=== PATIENT | female | born 1935 | race Caucasian/White ===

== ENCOUNTER 2018-03-09 20:59 | Inpatient (IN) | payer OTHER, MEDICARE ==
--- NOTE | 2018-03-09 21:33 | EDPHY ---
H & P Stated Complaint: head bleed Time Seen by Provider: 03/09/18 21:05 - Personal History Current Tetanus/Diphtheria Vaccine: Unsure Current Tetanus Diphtheria and Acellular Pertussis (TDAP): Unsure - Medical/Surgical History Hx Asthma: No Hx Chronic Respiratory Disease: No Hx Diabetes: No Hx Cardiac Disease: Yes Hx Renal Disease: No Hx Cirrhosis: No Hx Alcoholism: No Hx HIV/AIDS: No Hx Splenectomy or Spleen Trauma: No Other PMH: glaucoma, leiden factor V, HTN, High chol, anxiety - Social History Smoking Status: Never smoked Constitutional: Initial Vital Signs Temperature (C) 36.9 C 03/09/18 21:01 Heart Rate 88 03/09/18 21:01 Respiratory Rate 16 03/09/18 21:01 Blood Pressure 171/62 H 03/09/18 21:01 O2 Sat (%) 99 03/09/18 21:01 O2 Delivery Mode Room Air Allergies/Adverse Reactions: codeine Allergy (Verified 03/09/18 21:21) meperidine [From Demerol] Allergy (Verified 03/09/18 21:21) morphine Allergy (Verified 03/09/18 21:21) Home Medications: Medication Instructions Recorded ALPRAZolam [Alprazolam] 0.25 mg PO TID 03/09/18 Aspirin [Aspirin 81mg (*)] 81 mg PO DAILY 03/09/18 Simvastatin [Simvastatin] 20 mg PO HS 03/09/18 Warfarin Sodium 2.5 mg PO SUWE@16 03/09/18 Warfarin Sodium 5 mg PO MOTUTHFRSA@16 03/09/18 amLODIPine BESYLATE [Norvasc 2.5 2.5 mg PO DAILY 03/09/18 mg (*)] Medical Decision Making ED Course/Re-evaluation: CHIEF COMPLAINT: CVA HISTORY OF PRESENT ILLNESS: The patient is an 82 y/o female with Factor V Leiden deficiency and hypertension arriving via EMS from [facility] [place], [place] with known CVA for admission to the hospital here. CT today showed a lacunar infarct. She arrives on a Cardene drip for blood pressure management. Neurology is aware of patient and agrees with plan for admission here with continued blood pressure control. She denies any complaints currently and states, "I'm doing fine." She had no neurologic deficits prior to transfer here and currently denies headache, weakness, paresthesias, vision changes, speech difficulty, recent illness, or recent trauma. She told her family member earlier in the week she began feeling off and has not taken her medications for several days. Family member believes her dementia is worse currently. REVIEW OF SYSTEMS: A 10 point review of systems was performed and is negative with the exception of the elements mentioned in the history of present illness. PHYSICAL EXAM: HR, BP, O2 Sat, RR. Temp noted General Appearance: Alert, well hydrated, appropriate, and non-toxic appearing. Head: Atraumatic without scalp tenderness or obvious injury Eyes: Pupils equal, round, reactive to light and accommodation, EOMI, no trauma , no injection. Nose: Atraumatic, no rhinorrhea, clear. Throat: Mucus membranes moist. Neck: Supple Respiratory: No retractions, no distress, no wheezes, and no accessory muscle use. Lungs are clear to auscultation bilaterally. Cardiovascular: Regular rate and rhythm, no murmurs, rubs, or gallops. Good capillary refill all extremities. Gastrointestinal: Abdomen is soft, non-tender, non-distended, no masses, no rebound, no guarding, no peritoneal signs. Musculoskeletal: Normal active ROM of all extremities, atraumatic. Neurological: Alert, appropriate, and interactive. Nonfocal neuro. Skin: No rashes, good turgor, no nodules on palpation. PAST MEDICAL HISTORY: glaucoma, Factor V Leiden deficiency, hypertension, hypercholesterolemia, anxiety PAST SURGICAL HISTORY: Noncontributory SOCIAL HISTORY: Family member at bedside. Lives in [place]. Retired. DIFFERENTIAL DIAGNOSIS: The differential diagnosis for the patient's symptoms included but was not limited to peripheral causes, central causes including CVA , TIA, electrolyte abnormalities and dehydration, cardiogenic causes, atypical causes like migraine syndrome. MEDICAL DECISION MAKING: This is an 82 y/o female who presents with a known lacunar infarct on CT today while at [facility] [place], [place]. She denies any current complaints and has a nonfocal neuro exam. Discussed case with neurology prior to patient arrival and they recommend blood pressure control and admission. No further interventions necessary at this time. Patient and her family member are comfortable with plan for admission. Spoke with hospitalist service. Dr. Escobar accepts admission. Departure - Departure Report Scribed for: Andrew Mireles Report Scribed by: Hedy Hernandez Date of Report: 03/09/18 Time of Report: 21:56
[2018-03-09] MEDS ORDERED: NS 1,000 ML IV ONE (21:54)
[2018-03-09] MEDS ORDERED: ONDANSETRON DISINTEGRATING 4 MG TAB PO PRN (22:09)
[2018-03-09] MEDS ORDERED: ONDANSETRON 4 MG/2 ML VIAL IVP PRN (22:09)
[2018-03-09] MEDS ORDERED: ACETAMINOPHEN 325 MG TAB PO PRN (22:09)
[2018-03-09] MEDS ORDERED: NS 1,000 ML IV SCH (22:15)
[2018-03-09] MEDS: niCARdipine/NACL 200 ML IV SCH (23:45)
--- NOTE | 2018-03-09 23:55 | PDGENHP ---
History and Physical - Chief Complaint Confusion - History of Present Illness 82 yo F w/ hx of HTN, multiple TIAs, FVL, iritis, glaucoma, and anxiety presents from [facility] w/ evidence of hemorrhagic stroke. Per daughter, patient may have been incapacitated in her home for several days. The patient lives alone and usually takes care of her own ADL's and iADL's. The last contact with the patient was on Sunday, when her son spoke to her on the phone. Her daughter called for a welfare check today since she could not reach her. EMS found her in her home and took her to the ED, where an intraparenchymal hematoma in the L basal ganglia was diagnosed. Patient was transferred here for further care. At the time of my evaluation patient states she feels fatigued and foggy, but otherwise denies weakness, numbness, aphasia, etc. Her daughter states that she is much less sharp than her usual self. History Information - Allergies/Home Medication List Allergies/Adverse Reactions: codeine Allergy (Verified 03/09/18 21:21) meperidine [From Demerol] Allergy (Verified 03/09/18 21:21) morphine Allergy (Verified 03/09/18 21:21) Home Medications: ALPRAZolam [Alprazolam] 0.25 mg PO TID 03/09/18 [Last Taken Unknown] Aspirin [Aspirin 81mg (*)] 81 mg PO DAILY 03/09/18 [Last Taken Unknown] Simvastatin [Simvastatin] 20 mg PO HS 03/09/18 [Last Taken Unknown] Warfarin Sodium 2.5 mg PO SUWE@16 03/09/18 [Last Taken Unknown] Warfarin Sodium 5 mg PO MOTUTHFRSA@16 03/09/18 [Last Taken Unknown] amLODIPine BESYLATE [Norvasc 2.5 mg (*)] 2.5 mg PO DAILY 03/09/18 [Last Taken Unknown] I have personally reviewed and updated: family history, medical history - Past Medical History glaucoma, hypertension, TIA Additional medical history: FVL. Anxiety - Surgical History Additional surgical history: Bilateral TKAs - Family History Additional family history: FVL - Social History Smoking Status: Never smoked Review of Systems Review of Systems: ROS: 10pt was reviewed & negative except for what was stated in HPI & below Physical Exam Physical Exam: Temp Pulse Resp BP Pulse Ox 36.9 C 86 16 143/56 H 97 03/09/18 21:01 03/09/18 22:35 03/09/18 22:35 03/09/18 22:35 03/09/18 22:35 Constitutional: no apparent distress, not in pain Eyes: EOMI, other (Unequal pupils, R pupil>L with sluggish reaction (patient states this is baseline)) Ears, Nose, Mouth, Throat: moist mucous membranes, no oral mucosal ulcers Cardiovascular: regular rate and rhythym, systolic murmur Respiratory: no respiratory distress, clear to auscultation Gastrointestinal: normoactive bowel sounds, soft, non-tender abdomen Skin: warm, normal color Musculoskeletal: full muscle strength, no muscle tenderness Neurologic: sensation intact bilaterally, CN II-XII Intact, other (A&Ox1), No weakness, No numbness, No facial droop Psychiatric: interacting appropriately, not anxious Assessment & Plan Assessment: 82 yo F w/ hx of HTN, multiple TIAs, FVL, iritis, glaucoma, and anxiety presents from [facility] w/ evidence of hemorrhagic stroke. Plan: 1. ICH - Intraparenchymal hematoma in the L basal ganglia with surrounding vasogenic edema, localized mass effect with partial effacement of the L lateral ventricle anterior horn. No focal neurologic symptoms at this time but patient is displaying mild confusion and impaired memory. Triggering factor is unclear at this time, but may be related to hx of FVL or anticoagulation therapy. - Admit to ICU for monitoring - Maintain SBP < 160/90 (MAP<110) - Monitor on telemetry, q4h neuro checks - Repeat CTH in the morning to monitor progression - PT/OT/CENTERLESS GRINDER evaluations - Will order TTE - Neurology consulted, appreciate assistance - Hold home ASA, warfarin 2. Hx FVL - Patient states this has manifested as several TIAs. She usually takes warfarin but has not taken it much of this week since her memory and cognition have been altered. - Hold warfarin, ASA noting ICH - Monitor INR 3. HTN - Takes Triamterene/HCTZ as outpatient. - Will control BP with nicardipine gtt as necessary to maintain tight BP control with goal BP <160/90 Diet - NPO pending swallow eval Code - Full Ppx - SCDs Dispo - Admit under inpatient status
[2018-03-09 23:57] LABS: PLATELET COUNT 294 10^3/uL (150-400)
[2018-03-10 00:09] LABS: INR 1.57 (0.83-1.16); PROTIME(PATIENT) 18.9 SEC (12.0-15.0)
--- NOTE | 2018-03-10 01:08 | PDMN ---
Medical Necessity Medical necessity: C/M review: est. > 2 MN LOS for eval and TX of evidence of hemorrhagic stroke, intraparenchymal hematoma in the left basal ganglia with surrounding vasogenic edema, localized mass effect with partial effacement of the left lateral ventricle anterior horn, confusion, impaired memory, requiring NPO pending swallow eval, planned 03/10/2018 CT head, Neurology consult, Rehab eval consult, echocardiogram, ongoing IV Nicardipine infusion, cardiac monitoring, frequent neuro checks, acute inpt PT/OT/ST in ICU, comorbid history of factor V Leiden deficiency, hypertension, multiple TIAs, iritis, glaucoma, anxiety, transferred from [place] ED to [facility] just prior to this admission, patient may have been incapacitated in her home for several days prior to this admission per H/P.
[2018-03-10] MEDS: niCARdipine/NACL 200 ML IV SCH ×3 (03:06→22:38)
[2018-03-10 04:46] LABS: PLATELET COUNT 279 10^3/uL (150-400)
[2018-03-10 04:56] LABS: INR 1.61 (0.83-1.16); PROTIME(PATIENT) 19.3 SEC (12.0-15.0)
--- NOTE | 2018-03-10 10:58 | NEUROPROG ---
Assessment: HOSPITAL NEUROLOGY CONSULT REQUESTING: Dr. Escobar REASON: hemorrhagic stroke HPI: 82 year old right-handed woman with a history of HTN, TIAs, Factor V Leiden on warfarin, vision loss in right eye (glaucoma), presented to our facility in transfer from [place] last night due to an intracerebral hemorrhage. Patient live independently and had not been in touch with family for the week. This concerned her daughter who ordered a welfare check on the patient. Patient was found in her apartment confused and EMS transported her to [facility]. CT head wo was done at that facility showing an acute left basal ganglia IPH with mild mass effect and minimal dependent blood products in the occipital horns. Nicardipine infusion was started for BP control and she was transported here for further care. She has been in the ICU overnight and remains on nicardipine infusion. She does recognize some expressive language difficulty and feels a little confused. She denies any focal weakness, sensory loss, visual disturbance, speech dysfunction, TALAVERA, nausea/vomiting, CP, palpitations, SOB. She endorses compliance with her medications. ROS: As per the HPI, otherwise a complete 12 point ROS was performed and is negative ALLERGIES AND MEDS: As recorded in the EMR - reviewed and reconciled PFSH: As per the intake H&P by Dr. Escobar from yesterday EXAM: VS reviewed in EMR GEN: WDWN laying in NAD HEENT: NCAT, sclera anicteric, conjunctiva not injected, MMM, oropharynx clear, no scalp tenderness NECK: supple, nontender, no meningismus CV: RRR s1 s2 wo m/r/c/g. Carotid pulses 2+ wo bruit NEURO: GCS 14 (E4, V4, M6) MS: awake, alert, oriented to self, hospital environment, day, month, states year is 2019. Speech nondysarthric. Some expressive language dysfunction present manifest as word finding difficulty. Follows commands. Attends to both sides. Episodic/recent memory impairment on casual conversation. Mood euthymic. Good fund of knowledge. CN: pupils 3mm round and reactive OS, 4mm round sluggish OD. Unable to visualize fundi. VFF OS, hand wave only OD (chronic vision impairment). Primary gaze centered. Full ocular motility. Facial sensation preserved. Face symmetric. Hearing grossly intact to finger rub. Palatoglossal movements intact. Shoulder shrug and head turn strong. MOTOR: normal bulk/tone. Bilateral hip flexor weakness at 4/5, otherwise full power throughout. She has a coarse tremor of both hands on sustention without intention worsening. SENSORY: intact/symmetric LT/PP in all extremities. No extinction. COORD: no ataxia FN/HS. Fallon labored. REFLEX: plantars equivocal. No clonus. DTRS absent. GAIT: unable to perform for safety reasons DATA REVIEW: Labs reviewed in EMR INR 1.61 (1.57) PERSONALLY INTERPRETED RESULTS AND DATA: CT head wo - 35mm x 30mm acute round/elipsoid hemorrhage in the left basal ganglia, minimal mass effect on the adjacent left lateral ventricle, surrounding vasogenic appearing edema, small amount of dependent blood products in the occipital horns. Stable compared to CT from [facility] (uploaded to PACs) IMPRESSION AND RECOMMENDATIONS: // ACUTE INTRACEREBRAL HEMORRHAGE // HTN // FACTOR V LEIDEN ON ANTICOAGULATION Likely a HTN hemorrhage with increased risk due to OAC with warfarin. Will need to rule out secondary cause. GCS 14 ICH score 3 NIHSS 1 (chronic VF defect) - cont ICU care with hourly vitals and neuro checks - maintain SBP < 140 - currently on nicardipine infusion - avoid large variability in SBP - hold OAC - will need to reduce INR pharmacologically with goal INR at least < 1.4 - monitor coags daily - CTA head to rule out vascular malformation/aneurysm - MRI brain wow tomorrow to rule out underlying mass or CAA - maintain normothermia - avoid hypoglycemia - maintain euvolemia - keep sodium within 140-150 range avoiding hyponatremia - may need to increase this goal and intervene with HTS if any evidence of worsening edema - SCDs - would be reasonable to start DVT chemoprophylaxis with SQ heparin in 48 hours if hemorrhage remains stable - TTE to screen for stress induced changes, monitor on tele - neurosurgery consult for ICH with IVH - PT/OT/FIRE ALARM OPERATOR consults - stroke education - further medical management per ICU/IM teams Patient is critically ill with new ICH - high risk of clinical deterioration with further end organ damage to 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 50 mins CC time in direct patient care activities on the floor. Objective: Vital Signs Temp Pulse Resp BP Pulse Ox 36.9 C 80 19 137/46 H 97 03/10/18 08:00 03/10/18 09:00 03/10/18 09:00 03/10/18 09:00 03/10/18 09:00 Laboratory Results 03/10/18 04:00 03/10/18 04:00 03/09/18 03/10/18 03/11/18 05:59 05:59 05:59 Intake Total 1017 Balance 1017 PT 19.3 SEC (12.0-15.0) H 03/10/18 04:00 INR 1.61 (0.83-1.16) H 03/10/18 04:00 Allergies/Adverse Reactions: codeine Allergy (Verified 03/09/18 21:21) meperidine [From Demerol] Allergy (Verified 03/09/18 21:21) morphine Allergy (Verified 03/09/18 21:21)
[2018-03-10] MEDS ORDERED: IOPAMIDOL (ISOVUE 370) 100 ML BTL IV ONE (11:40)
[2018-03-10] MEDS ORDERED: PHYTONADIONE 2.5 MG/2.5 ML ORAL UDL PO ONE (11:41)
--- NOTE | 2018-03-10 12:00 | ECHO ---
[email or web address] [address] [address] Main: [phone] Fax: [email or web address] Echocardiogram Name: ALPESH HERNANDEZ MR#: [id number] Study Date: 03/10/2018 Study Time: 10:06 AM Date of : 1935 Age: 82 year(s) Height: 154.9 cm (61 in.) Weight: 72.58 kg (160 lb.) BSA: 1.72 m2 Gender: Female Examination: Echo Indication: Image Quality: Contrast: Requested by: Antoni Conn BP: 133 mmHg/49 mmHg Heart Rate: Rhythm: Indication: Procedure Staff Roof Bolter: Mirella Wilson RDCS Reading Physician: Reji Morton MD Requesting Provider: Conclusions: Normal global systolic LV function. The ejection fraction is visually estimated to be 65 %. Grade 1 diastolic dysfunction (abnormal relaxation). Normal RV function. An agitated saline study was performed and was negative for intracardiac shunting. Mild mitral valve regurgitation is present. Mild tricuspid regurgitation is present. Measurements: Chambers Valvular Assessment AV/MV Valvular Assessment TV/PV Normal Normal Normal Name Value Range Name Value Range Name Value Range Ao Sheridan (2D): 2.7 cm (1.4 cm-2.6 AV meanP mmHg ( - ) TR Vmax: 3.19 mm/s ( - ) cm) CONNIE (VTI): 2.3 cm ( - ) TR PGmax: 41 mmHg ( - ) IVSd (2D): 0.9 cm (0.6 cm-1.1 MV E Vmax: 0.72 m/s ( - ) syst. PAP: 46 mmHg ( - ) cm) MV A Vmax: 0.99 m/s ( - ) PV Vmax: 1.48 m/s (0.6 m/s-0.9 LVDd (2D): 4.1 cm (3.9 cm-5.3 MV E/A: 0.73 ( - ) m/s) cm) MV PHT: 0.070 s ( - ) PV PGmax: 9 mmHg ( - ) LVDs (2D): 2.4 cm (2.1 cm-4 cm) MVA (PHT): 3.1 s ( - ) LVPWd (2D): 1.0 cm ( - ) LVOTd 2.0 cm 2.0 cm mm LVEF (BP): 70 % (>=55 %) Visual EF: 65 % RVDd(2D): 2.6 cm (1.9 cm-3.8 cmmm) Continued Measurements: Chambers Valvular Assessment AV/MV Valvular Assessment TV/PV Patient: ALPESH HERNANDEZ Study Date: 03/10/2018 Page 1 of 2 10:06 AM Name Value Name Value Name Value LADs: 2.9 cm MV DecTime: 239 m/s CVP (est.): 5 mmHg LADs Lon.3 cm MV E' Septal: 0.07 m/s LA Area: 16.4 cm2 MV E/E' Septal: 9.70 LA Volume: 46 ml MV E/E' Lateral: 8.50 LA Volume Index: 26.7 ml/m2 RA Area: 16.3 cm2 Additional Vessels Name Value Ao Ascendin.5 cm Inferior Vena Cava: 1.2 cm Findings: Left Ventricle: Normal size left ventricle. No LV hypertrophy. Normal global systolic LV function. The ejection fraction is visually estimated to be 65 %. No regional wall motion abnormality. Grade 1 diastolic dysfunction (abnormal relaxation). Right Ventricle: Normal size right ventricle. Normal RV function. Left Atrium: The left atrium is normal in size. An agitated saline study was performed and was negative for intracardiac shunting. Right Atrium: The right atrium is normal in size. Mitral Valve: The mitral valve is normal in appearance and function. Mild mitral valve regurgitation is present. No mitral stenosis is present. Aortic Valve: The aortic valve is normal in appearance and function. Aortic sclerosis is present. Mild aortic valve regurgitation is present. Trivial calcific aortic valve stenosis. Tricuspid Valve: The tricuspid valve is normal in appearance and function. Mild tricuspid regurgitation is present. The pulmonary artery pressure is mildly increased. Right ventricular systolic pressure measures 46mmHg. Pulmonic Valve: The pulmonic valve is normal in appearance and function. There is no pulmonic regurgitation seen. Aorta: The aorta is normal. Normal size aortic root measuring 2.7 cm. Normal size ascending aorta measuring 2.5 cm. IVC: The IVC is normal sized. Pericardium: No pericardial effusion. Exam Comments: Patient supine in ICU, unable to lay on left side due to pain and stiffness. (No Signature Object) Patient: ALPESH HERNANDEZ Study Date: 03/10/2018 Page 2 of 2 10:06 AM [id number]
--- NOTE | 2018-03-10 12:38 | ASMTCMCOM ---
CM Note CM Note Notes: 82yr old female found down at home after a welfare check. Admitted for Basal ganglion hemorrhage, HTN. She has a Hx of HTN, TIA's Factor V Leiden, Glaucoma. Patient lives alone in [place]. Involved son and daughter. CT Scan stable. Therapies to eval for discharge needs. CM to follow. Date Signed: 03/10/2018 12:38 PM Electronically Signed By:Patricia Stephens LCSW
--- NOTE | 2018-03-10 13:01 | HOSPPROG ---
Hospitalist Progress Note Assessment/Plan: 82 yo F w factor V Leiden here w ICH ICH: memory improving unremarkable CTA inr 1.6, given vit K keep sbp< 141 htn: continue norvasc nicardipine drip FVLeiden: inr reversed fci plan unclear for now found down: apparently on the floor a few days AST ok but will check CK for completeness proph: scds dispo: icu, pt/ot Subjective: case d/w fran mota and anisha Objective: Vital Signs Temp Pulse Resp BP Pulse Ox 36.9 C 80 19 137/46 H 97 03/10/18 08:00 03/10/18 09:00 03/10/18 09:00 03/10/18 09:00 03/10/18 09:00 Laboratory Results 03/10/18 04:00 03/10/18 04:00 03/09/18 03/10/18 03/11/18 05:59 05:59 05:59 Intake Total 1017 Balance 1017 PT 19.3 SEC (12.0-15.0) H 03/10/18 04:00 INR 1.61 (0.83-1.16) H 03/10/18 04:00 - Physical Exam Constitutional: no apparent distress, appears nourished Eyes: PERRL, anicteric sclera Ears, Nose, Mouth, Throat: moist mucous membranes, hearing normal Cardiovascular: regular rate and rhythym, no murmur, rub, or gallop Respiratory: no respiratory distress, no rales or rhonchi Gastrointestinal: normoactive bowel sounds, soft, non-tender abdomen Genitourinary: no bladder fullness, No moy in urethra Skin: warm, normal color Musculoskeletal: full muscle strength, no muscle tenderness Neurologic: AAOx3 Psychiatric: interacting appropriately
--- NOTE | 2018-03-10 13:22 | GCON ---
[f rep st] CONSULTATION NEUROSURGICAL CONSULTATION CHIEF COMPLAINT: Confusion. HISTORY OF PRESENT ILLNESS: The patient is a pleasant 82-year-old female with a history of hypertens ion and multiple TIAs, as well as glaucoma and anxiety, who is admitted to [facility] after being transferred directly from [place] with evidence of a hemorrhagic stroke. CT scan of the brain indicates a left basal ganglia hemorrhage with surrounding vasogenic edema, localized mass effect with effacement of the left lateral ventricle anterior horn. The patient states that she felt like her right leg was weak last night, but today states that this has improved. Apparently, the michele scruggs was found down by her daughter, for what she thinks was several days after her daughter could n ot reach her. Currently, the patient is awake and alert and comfortable, and denies any focal weakne ss or neurologic changes other than slight right lower extremity weakness. She is a bit delayed when answering questions and her daughter, who was present has assisted with the majority of the history. ALLERGIES: Codeine, meperidine, and morphine. HOME MEDICATIONS: 1. Alprazolam 0.25 mg p.o. three times daily. 2. Aspirin 81 mg p.o. daily. 3. Simvastatin 20 mg p.o. at bedtime. 4. Coumadin 2.5 mg p.o. Sunday and Sunday, and 5 mg on Sunday, Sunday, , Sunday and Satu . 5. Norvasc 2.5 mg p.o. daily. PAST MEDICAL HISTORY: 1. Glaucoma. 2. Hypertension. 3. Multiple TIAs. 4. Anxiety. 5. Factor 5 Leiden. 6. Iritis. PAST SURGICAL HISTORY: Bilateral knee replacements. FAMILY HISTORY: Notable for strokes and Factor 5 Leiden. PHYSICAL EXAM: GENERAL: Pleasant, healthy-appearing 82-year-old female in no apparent distress. HE AD, EYES, EARS, NOSE, AND THROAT: Within normal limits. EXTREMITIES: Within normal limits. NEUROLOGIC: Patient is awake, alert, oriented x4. Cranial nerves 2-12 are intact to gross examinati on. There is no facial droop and no pronator drift. She has equal and symmetric strength of the kristyn ateral upper and lower extremities in all muscle groups with normal sensation in all dermatomal distr ibutions of the bilateral upper and lower extremities. IMAGING REVIEW: CT scan of the head without contrast demonstrates an intraparenchymal hematoma in th e left basal ganglia with surrounding vasogenic edema, localized mass effect with partial effacement of the left lateral ventricle anterior horn. PLAN: All the above issues were discussed with the patient and her daughter in detail. At this time , the patient's Coumadin and aspirin have been held and Medical and Neurology are reversing her INR. At this time, Dr. Sheth recommends that we keep her systolic blood pressure below 140. There is no neurosurgical intervention intended at this time, and will not likely be needed. We will continue to follow along with this patient during her hospitalization. All the above issues were discussed with Dr. Sheth, who saw the patient. Copy requested to: Shahram Ramirez MD /[id number]/[id number]
--- NOTE | 2018-03-10 16:08 | GCON ---
[f rep st] CONSULTATION PULMONARY/CRITICAL CARE CONSULTATION DATE OF CONSULTATION: 03/10/2018 REFERRING PHYSICIAN: Jah Martin MD REASON FOR REFERRAL: Evaluation and management of hypertension. HISTORY: The patient is an 82-year-old woman with a history of hypertension, TIAs, and factor V Leid en, on Coumadin, who was brought into [facility] yesterday, after she apparently was down fo r 2 days, per patient report. She was found to have an intraparenchymal hemorrhage, and was transfer red to [facility] for further care. Today, she is feeling better and is more oriente d. She denies headache, but still has some weakness. She started to take p.o. PAST MEDICAL HISTORY: 1. Hypertension. 2. TIA. 3. Factor V Leiden. This was apparently discovered as part of an evaluation for TIAs. MEDICATIONS: At time of admission include amlodipine 2.5 mg daily, warfarin, simvastatin, aspirin, a nd alprazolam. ALLERGIES: Codeine, Demerol and morphine. SOCIAL HISTORY: The patient lives independently in [place]. She has never smoked. FAMILY HISTORY: Positive for Factor V Leiden. REVIEW OF SYSTEMS: A 10-point review of systems adds nothing to the history of present illness. PHYSICAL EXAMINATION: GENERAL: The patient is awake, alert, in no acute distress. VITAL SIGNS: Bl ood pressure is 89/56, with a heart rate of 89. She is afebrile. Oxygen saturations are 98% on 2 L. HEENT: Normocephalic and atraumatic. No icterus. NECK: No JVD. Trachea is midline. CHEST: Cl ear to auscultation. CARDIAC: Regular rate and rhythm without murmur. ABDOMEN: Soft, nontender. Bowel sounds are prese nt. EXTREMITIES: No clubbing, cyanosis, or edema. NEURO: The patient is awake and alert. She is oriented x3. She has good muscle strength throughout, but has some coarse tremor in her upper extrem ities. LABORATORY: Sodium is 144, creatinine 0.6. An AST is 89. White blood count is 12.8. An INR is 1.[address] scan of the head shows a moderate-size intraparenchymal hemorrhage 3.5 cm in maximal diameter, i n the left basal ganglia. There is a minimal amount of blood in the lateral ventricle. Images revie wed by me. CT angiogram does not show any vascular malformations. ASSESSMENT: 1. Intraparenchymal hemorrhage. This is likely due to hypertension and worsened by the patient's an ticoagulation. She was initially hypertensive in the emergency department, with a blood pressure of 171/62. This has been controlled with nicardipine. She has just started her Norvasc, and her blood pressure initially has dipped down. 2. Factor V Leiden. The patient's INR is somewhat elevated, but is not in the therapeutic range. F urther FFP would probably not be very beneficial, given that her bleed is stable, PCC is not warrante d, but further reduction in her INR would probably help reduce her risk of further bleeding. 3. Hypertension. This is well controlled with nicardipine and now her oral Norvasc. RECOMMENDATIONS: 1. Vitamin K. 2. An MRI will be performed tomorrow as per Neurology. Transthoracic echocardiogram will also be pe rformed. 3. The patient will remain in the ICU until her blood pressure is controlled on oral medications. /[id number]/MODL
[2018-03-10 16:39] LABS: CREATINE KINASE 646 IU/L (0-156)
[2018-03-10] MEDS ORDERED: NON-FORMULARY NEW DRUG (Simvastatin [Simvastatin] 20 MG) PO SCH (21:00)
[2018-03-10] MEDS: ATORVASTATIN CALCIUM 10 MG TAB PO SCH (22:38)
[2018-03-11] MEDS: niCARdipine/NACL 200 ML IV SCH ×3 (02:57→16:00)
[2018-03-11 07:30] LABS: INR 1.21 (0.83-1.16); PROTIME(PATIENT) 15.5 SEC (12.0-15.0)
--- NOTE | 2018-03-11 07:44 | NEUSURGPN ---
Assessment/Plan: Plan: 82 yr old female with left basal ganglia hemorrhage Plan: -Ok for patient to transfer to floor from neurosurgery standpoint -MRI brain pending this am -Keep SBP less than 140 -Patient discussed with Dr Sheth Please call neurosurgery with any questions/concerns Subjective: No new events Objective: Alert oriented to self and location, mild memory with president, year (Cartwright is president and the year is "2 thousand something" PERRL CN 2-12 grossly intact 5/5 BUE, BLE Sensation intact to light touch BLE Neuro Check Frequency: per routine Urinary Catheter in Place: No - Physician Discussed Patient with Dr.: Sheth Neurosurgery Physical Exam - Vitals, I&O, Labs I and O 03/10/18 03/11/18 03/12/18 05:59 05:59 05:59 Intake Total 1017 2556 Output Total 720 Balance 1017 1836 Weight 76.7 kg 78 kg Intake: Oral (ml) 400 IV Infused (ml) 617 2556 Ns 1,000 ml @ 70 mls/hr 373 1690 IV CONT MARELY Rx#: [id number] niCARdipine/NACL 200 ml @ 244 866 Titrate IV CONT MARELY Rx#: [id number] Output: Urine (ml) 720 Catheter 720 Other: Number of Voids 1 Incontinence 2 4 Vital Signs Temp Pulse Resp BP Pulse Ox 36.9 C 75 18 132/48 H 94 03/10/18 12:00 03/11/18 07:00 03/11/18 07:00 03/11/18 07:00 03/11/18 07:00 Laboratory Results 03/10/18 04:00 03/11/18 06:05 ICD10 Worksheet Patient Problems: Problems Problem Status Onset Acute intra-cranial hemorrhage Acute - ICD10 Problem Qualifiers (1) Acute intra-cranial hemorrhage
--- NOTE | 2018-03-11 09:25 | NEUROPROG ---
Assessment: BACKGROUND: 03/10 82 year old right-handed woman with a history of HTN, TIAs, Factor V Leiden on warfarin, vision loss in right eye (glaucoma), presented to our facility in transfer from [place] last night due to an intracerebral hemorrhage. Patient live independently and had not been in touch with family for the week. This concerned her daughter who ordered a welfare check on the patient. Patient was found in her apartment confused and EMS transported her to [facility]. CT head wo was done at that facility showing an acute left basal ganglia IPH with mild mass effect and minimal dependent blood products in the occipital horns. Nicardipine infusion was started for BP control and she was transported here for further care. She has been in the ICU overnight and remains on nicardipine infusion. She does recognize some expressive language difficulty and feels a little confused. She denies any focal weakness, sensory loss, visual disturbance, speech dysfunction, TALAVERA, nausea/vomiting, CP, palpitations, SOB. She endorses compliance with her medications. INTERVAL HISTORY: 03/11: Continues to do well. Still with a little word finding difficulty, but improved. No new complaints. No TALAVERA, nausea, vomiting. EXAM: VS reviewed in EMR GEN: WDWN sitting in NAD, eating breakfast NEURO: GCS 14 (E4, V4, M6) MS: awake, alert, oriented to self, hospital environment, day, month, not year. Speech nondysarthric. Some expressive language dysfunction present manifest as word finding difficulty - improved. Follows commands. Attends to both sides. Episodic/recent memory impairment on casual conversation. Mood euthymic. Good fund of knowledge. CN: pupils 3mm round and reactive OS, 4mm round sluggish OD. VFF OS, hand wave only OD (chronic vision impairment). Primary gaze centered. Full ocular motility. Facial sensation preserved. Face symmetric. Hearing grossly intact to finger rub. Palatoglossal movements intact. Shoulder shrug and head turn strong. MOTOR: normal bulk/tone. Bilateral hip flexor weakness at 4/5, otherwise full power throughout. She has a coarse tremor of both hands on sustention without intention worsening. SENSORY: intact/symmetric LT/PP in all extremities. No extinction. COORD: no ataxia FN/HS. Fallon labored. REFLEX: plantars equivocal. No clonus. DTRS absent. GAIT: unable to perform for safety reasons DATA REVIEW: Labs reviewed in EMR INR 1.21 (1.61) (1.57) TTE - preserved EF at 65%, grade I diastolic dysfunction, no mass/thrombus, no areas of hypokinesis PERSONALLY INTERPRETED RESULTS AND DATA: CT head wo - 35mm x 30mm acute round/elipsoid hemorrhage in the left basal ganglia, minimal mass effect on the adjacent left lateral ventricle, surrounding vasogenic appearing edema, small amount of dependent blood products in the occipital horns. Stable compared to CT from [facility] (uploaded to PACs) CTA head - normal caliber vessels, no vascular abnormalities, no contrast extravasation into area of hemorrhage IMPRESSION AND RECOMMENDATIONS: // ACUTE INTRACEREBRAL HEMORRHAGE // HTN // FACTOR V LEIDEN ON ANTICOAGULATION Likely a HTN hemorrhage with increased risk due to OAC with warfarin. Will need to rule out secondary cause. GCS 14 ICH score 3 NIHSS 1 (chronic VF defect) - cont ICU care with hourly vitals and neuro checks - OK to transfer to SDU if MRI shows stable hemorrhage - maintain SBP < 140 - currently on nicardipine infusion - avoid large variability in SBP - primary teams working to transition to oral anti-HTNs - cont hold OAC - INR at goal < 1.4 today after a dose of PO vitamin K - monitor coags daily - MRI brain wow today to rule out underlying mass or CAA - maintain normothermia - avoid hypoglycemia - maintain euvolemia - keep sodium within 140-150 range avoiding hyponatremia - may need to increase this goal and intervene with HTS if any evidence of worsening edema - SCDs - would be reasonable to start DVT chemoprophylaxis with SQ heparin tomorrow if hemorrhage remains stable - neurosurgery following - PT/OT/ONLINE AFFILIATE MARKETING MANAGER consults - stroke education - further medical management per ICU/IM teams Patient is critically ill with new ICH - high risk of clinical deterioration with further end organ damage 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 Still undergoing workup for secondary causes of hemorrhage. 40 mins CC time in direct patient care activities on the floor. Objective: Vital Signs Temp Pulse Resp BP Pulse Ox 36.8 C 88 17 133/53 H 94 03/11/18 08:00 03/11/18 08:00 03/11/18 08:00 03/11/18 08:49 03/11/18 08:00 Laboratory Results 03/10/18 04:00 03/11/18 06:05 04/2903/11/18 03/12/18 05:59 05:59 05:59 Intake Total 1017 2556 Output Total 720 Balance 1017 1836 PT 15.5 SEC (12.0-15.0) H 03/11/18 06:05 INR 1.21 (0.83-1.16) H 03/11/18 06:05 Allergies/Adverse Reactions: codeine Allergy (Verified 03/09/18 21:21) meperidine [From Demerol] Allergy (Verified 03/09/18 21:21) morphine Allergy (Verified 03/09/18 21:21)
[2018-03-11] MEDS ORDERED: ALPRAZolam 0.25 MG TAB PO ONE (15:00)
--- NOTE | 2018-03-11 15:07 | HOSPPROG ---
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 still on nicardipine drip Objective: Vital Signs Temp Pulse Resp BP Pulse Ox 37.1 C 87 25 H 127/54 H 94 03/11/18 13:00 03/11/18 14:00 03/11/18 14:00 03/11/18 14:00 03/11/18 14:00 Laboratory Results 03/10/18 04:00 03/11/18 06:05 03/10/18 03/11/18 03/12/18 05:59 05:59 05:59 Intake Total 1017 2556 400 Output Total 720 300 Balance 1017 1836 100 PT 15.5 SEC (12.0-15.0) H 03/11/18 06:05 INR 1.21 (0.83-1.16) H 03/11/18 06:05 - Physical Exam Constitutional: no apparent distress, appears nourished Eyes: PERRL, anicteric sclera Ears, Nose, Mouth, Throat: moist mucous membranes, hearing normal Cardiovascular: regular rate and rhythym, no murmur, rub, or gallop Respiratory: no respiratory distress, no rales or rhonchi Gastrointestinal: normoactive bowel sounds, soft, non-tender abdomen Genitourinary: no bladder fullness, No moy in urethra Skin: warm, normal color Musculoskeletal: full muscle strength Neurologic: AAOx3, sensation intact bilaterally Psychiatric: not anxious ICD10 Worksheet Patient Problems: Problems Problem Status Onset Acute intra-cranial hemorrhage Acute
[2018-03-11] MEDS: LOSARTAN POTASSIUM 50 MG TAB PO SCH (15:58)
[2018-03-11] MEDS: ALPRAZolam 0.25 MG TAB PO SCH ×2 (16:06→21:22)
[2018-03-11] MEDS ORDERED: CARBOXYMETHYLCELLULOSE 0.5% 0.4 ML DROPERETTE EACHEYE PRN (18:46)
[2018-03-11] MEDS: prednisoLONE ACET 1% 5 ML OPHT.BTL RTEYE SCH ×3 (19:20→22:31)
--- NOTE | 2018-03-11 19:27 | PDINTPN ---
[facility] Progress Note Assessment/Plan: Assessment: Status post hemorrhagic stroke. Presumably hypertensive. Query possible fall with head trauma. Neurologic status stable. MRI pending. Hypertension. On a nicardipine drip to maintain blood pressure. On Cozaar and amlodipine at home. Anxiety: Takes Xanax on a regular basis, three times daily. Current dose appears to be 0.5 mg, not 0.25 mg. Her tremor may in part be due to benzodiazepine withdrawal? Anticoagulation: Secondary to factor 5 Leiden deficiency. Coumadin on hold. INR 1.2 today Plan: Continue care in the intensive care unit. Wean nicardipine as possible keeping blood pressure under 140. Agree with increased amlodipine. Will add low -dose metoprolol. Continue Xanax three times daily. May need increased dose. 35 min of clinic time was spent directly with the patient. Discussed with the patient's daughter, nursing, the ICU multi disciplinary team. Subjective: Up in chair, feels okay. Denies headache. Word finding problems persist. Objective: Vital Signs Temp Pulse Resp BP Pulse Ox 37.1 C 80 21 H 144/48 H 96 03/11/18 13:00 03/11/18 18:00 03/11/18 18:00 03/11/18 18:00 03/11/18 18:00 Laboratory Results 03/10/18 04:00 03/11/18 06:05 03/10/18 03/11/18 03/12/18 05:59 05:59 05:59 Intake Total 1017 2556 1943 Output Total 720 300 Balance 1017 1836 1643 PT 15.5 SEC (12.0-15.0) H 03/11/18 06:05 INR 1.21 (0.83-1.16) H 03/11/18 06:05 Physical Exam - Physical Exam General Appearance: alert, no apparent distress EENT: PERRL/EOMI, other (On room air this afternoon) Neck: normal inspection Respiratory: lungs clear, decreased breath sounds Cardiac/Chest: regular rate, rhythm, No gallop, No systolic murmur Abdomen: normal bowel sounds, non-tender, soft Pelvic Exam: other (No Rob catheter) Skin: normal color, warm/dry Extremities: No pedal edema Neuro/Psych: cognition abnormalities (Word-finding difficulties persist), No no motor/sensory deficits (Course hand tremor present. Grossly nonfocal motor examination) ICD10 Worksheet Patient Problems: Problems Problem Status Onset Acute intra-cranial hemorrhage Acute
--- NOTE | 2018-03-11 20:28 | GCON ---
[f rep st] CONSULTATION DATE OF CONSULTATION: 03/11/2018 REASON FOR CONSULTATION: Intensive care unit evaluation and medical management following intracerebr al hemorrhage. HISTORY: The patient is an 82-year-old, who lives in [place]. She has a history of systemic hyper tension and previous TIAs. She is chronically anticoagulated with Coumadin secondary to a history of factor V Leiden deficiency. Her daughter could not get in touch with her and [place] the [place]. A check was done. She was found down and brought to the [place] emergency department. CT t here showed a hemorrhagic stroke. This was in the left basal ganglia area. She was transferred to [facility] for further care and admitted to the intensive care unit. It is unknown how long she was down. Th e patient does not remember any events. She does have a bruise on her right shoulder and is sore in t hat area. She also has some back soreness. She is having difficulty in word-finding and complains of a tremor. PAST MEDICAL HISTORY: Remarkable for systemic hypertension, TIAs, factor V Leiden deficiency, and an xiety, for which she takes t.i.d. Xanax. There is also history of glaucoma. HOME MEDICATIONS: Xanax 0.5 mg t.i.d., Coumadin, aspirin, Norvasc, and simvastatin. PAST SURGICAL HISTORY: Knee replacements. SOCIAL HISTORY: The patient lives alone in [place]. Tobacco and alcohol are negative. FAMILY HISTORY: Factor 5 Leiden deficiency, stroke. REVIEW OF SYSTEMS: Unobtainable. PHYSICAL EXAMINATION: GENERAL: Reveals a pleasant woman, who is having difficulty with word-finding and answering questions. She is sitting up in a chair, eating. She has a significant coarse tremor, r ight hand perhaps a little bit greater than left. VITAL SIGNS: Blood pressure is 140/50, heart rate 8 2 with sinus rhythm on the monitor. Respiratory rate is 16. She is on room air. HEENT: Unremarkable f or lymphadenopathy or thyromegaly. There is no jugular venous distention. Pupils appear equal and ext raocular movements intact. CHEST: Clear bilaterally. Breath sounds are diminished at the bases. HEART : Tones are somewhat distant. The rhythm is regular. There is no significant murmur or gallop. ABDOME N: Soft and nontender. Bowel sounds are present. EXTREMITIES: Without edema or cords. There is no ten derness. NEUROLOGIC: Remarkable for bilateral hand tremor, mild possible left-sided weakness, __ DICTATION ENDS HERE /[id number]/MODL
[2018-03-11] MEDS: cycloSPORINE 0.05% 30 DROPERETTE/BOX EACHEYE SCH (21:21)
[2018-03-11] MEDS: ATORVASTATIN CALCIUM 10 MG TAB PO SCH (21:21)
[2018-03-11] MEDS: METOPROLOL TARTRATE 25 MG TAB PO SCH (21:21)
[2018-03-12] MEDS: niCARdipine/NACL 200 ML IV SCH ×2 (00:18→05:56)
[2018-03-12] MEDS: prednisoLONE ACET 1% 5 ML OPHT.BTL RTEYE SCH ×3 (05:53→17:59)
[2018-03-12 06:04] LABS: INR 1.09 (0.83-1.16); PROTIME(PATIENT) 14.3 SEC (12.0-15.0)
--- NOTE | 2018-03-12 08:44 | NEUROPROG ---
Assessment: BACKGROUND: 03/10 82 year old right-handed woman with a history of HTN, TIAs, Factor V Leiden on warfarin, vision loss in right eye (glaucoma), presented to our facility in transfer from [place] last night due to an intracerebral hemorrhage. Patient live independently and had not been in touch with family for the week. This concerned her daughter who ordered a welfare check on the patient. Patient was found in her apartment confused and EMS transported her to [facility]. CT head wo was done at that facility showing an acute left basal ganglia IPH with mild mass effect and minimal dependent blood products in the occipital horns. Nicardipine infusion was started for BP control and she was transported here for further care. She has been in the ICU overnight and remains on nicardipine infusion. She does recognize some expressive language difficulty and feels a little confused. She denies any focal weakness, sensory loss, visual disturbance, speech dysfunction, TALAVERA, nausea/vomiting, CP, palpitations, SOB. She endorses compliance with her medications. INTERVAL HISTORY: 03/11: Continues to do well. Still with a little word finding difficulty, but improved. No new complaints. No TALAVERA, nausea, vomiting. : No new complaints. Feels language function improving. It was found she was taking alprazolam TID, so this was restarted to combat withdrawal - tremors improved. No TALAVERA, nausea, vomiting. Still waiting for MRI to be done. EXAM: VS reviewed in EMR GEN: WDWN sitting in NAD, eating breakfast NEURO: GCS 14 (E4, V4, M6) MS: awake, alert, oriented to self, hospital environment, day, month, not year. Speech nondysarthric. Subtle expressive language dysfunction present on extended conversation manifest as word finding difficulty - improved. Follows commands. Attends to both sides. Episodic/recent memory impairment on casual conversation. Mood euthymic. Good fund of knowledge. CN: pupils 3mm round and reactive OS, 4mm round sluggish OD. VFF OS, hand wave only OD (chronic vision impairment). Primary gaze centered. Full ocular motility. Facial sensation preserved. Face symmetric. Hearing grossly intact to finger rub. Palatoglossal movements intact. Shoulder shrug and head turn strong. MOTOR: normal bulk/tone. Bilateral hip flexor weakness at 4/5, otherwise full power throughout. Subtle tremor of the hands on sustention - improved SENSORY: intact/symmetric LT/PP in all extremities. No extinction. COORD: no ataxia FN/HS. Fallon labored. REFLEX: plantars equivocal. No clonus. DTRS absent. GAIT: unable to perform for safety reasons DATA REVIEW: Labs reviewed in EMR INR 1.09 (1.21) (1.61) (1.57) TTE - preserved EF at 65%, grade I diastolic dysfunction, no mass/thrombus, no areas of hypokinesis PERSONALLY INTERPRETED RESULTS AND DATA: CT head wo - 35mm x 30mm acute round/elipsoid hemorrhage in the left basal ganglia, minimal mass effect on the adjacent left lateral ventricle, surrounding vasogenic appearing edema, small amount of dependent blood products in the occipital horns. 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 Will need to rule out secondary cause. GCS 14 ICH score 3 NIHSS 1 (chronic VF defect) - cont ICU care with hourly vitals and neuro checks - OK to transfer to SDU if MRI shows stable hemorrhage - maintain SBP < 140 - currently on nicardipine infusion - avoid large variability in SBP - primary teams working to transition to oral anti-HTNs - cont hold OAC - INR at goal < 1.4 today after a single dose of PO vitamin K. If no CAA on MRI, can consider restarting OAC in 4 weeks after repeat outpatient CT head shows ongoing resolution of bleed. 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 Still undergoing workup for secondary causes of hemorrhage. Still on nicardipine infusion therapy for BP management. 40 mins CC time in direct patient care activities on the floor. Objective: Vital Signs Temp Pulse Resp BP Pulse Ox 36.7 C 84 17 143/47 H 97 03/12/18 04:00 03/12/18 06:00 03/12/18 06:00 03/12/18 06:00 03/12/18 06:00 Laboratory Results 03/10/18 04:00 03/12/18 05:48 03/11/18 03/12/18 03/13/18 05:59 05:59 05:59 Intake Total 2556 2629 Output Total 720 550 Balance 1836 2079 PT 14.3 SEC (12.0-15.0) 03/12/18 05:48 INR 1.09 (0.83-1.16) 03/12/18 05:48 Allergies/Adverse Reactions: codeine Allergy (Verified 03/09/18 21:21) meperidine [From Demerol] Allergy (Verified 03/09/18 21:21) morphine Allergy (Verified 03/09/18 21:21)
--- NOTE | 2018-03-12 09:32 | NEUSURGPN ---
Assessment/Plan: Plan: 82 yr old female with left basal ganglia hemorrhage Plan: -Ok for patient to transfer to floor from neurosurgery standpoint -MRI brain pending this am -Keep SBP less than 140, defer to Medicine to help with oral anti-hypertensives -Patient discussed with Dr Sheth Please call neurosurgery with any questions/concerns Subjective: No new events Objective: Alert oriented to self and location PERRL CN 2-12 grossly intact No droop 5/5 BUE, BLE Sensation intact to light touch BLE Neuro Check Frequency: per routine Urinary Catheter in Place: No - Physician Discussed Patient with : Meryl Neurosurgery Physical Exam - Vitals, I&O, Labs I and O 03/11/18 03/12/18 03/13/18 05:59 05:59 05:59 Intake Total 2556 2629 Output Total 720 550 Balance 1836 2079 Weight 78 kg Intake: Oral (ml) 1100 IV Intake (ml) 476 IV Infused (ml) 2556 1053 Ns 1,000 ml @ 70 mls/hr 1690 767 IV CONT MARELY Rx#: [id number] niCARdipine/NACL 200 ml @ 866 286 Titrate IV CONT MARELY Rx#: [id number] Output: Urine (ml) 720 550 Bedside Commode 150 Catheter 720 150 Incontinence 250 Other: Number of Voids Incontinence 4 2 Number of Stools Bedside Commode 1 Catheter 0 Vital Signs Temp Pulse Resp BP Pulse Ox 36.7 C 84 17 143/47 H 97 03/12/18 04:00 03/12/18 06:00 03/12/18 06:00 03/12/18 06:00 03/12/18 06:00 Laboratory Results 03/10/18 04:00 03/12/18 05:48 ICD10 Worksheet Patient Problems: Problems Problem Status Onset Acute intra-cranial hemorrhage Acute - ICD10 Problem Qualifiers (1) Acute intra-cranial hemorrhage
[2018-03-12] MEDS: ALPRAZolam 0.25 MG TAB PO SCH ×3 (10:51→22:05)
[2018-03-12] MEDS: LOSARTAN POTASSIUM 50 MG TAB PO SCH (10:51)
[2018-03-12] MEDS: METOPROLOL TARTRATE 25 MG TAB PO SCH ×2 (10:52→22:06)
[2018-03-12] MEDS: cycloSPORINE 0.05% 30 DROPERETTE/BOX EACHEYE SCH (10:53)
--- NOTE | 2018-03-12 15:05 | HOSPPROG ---
Hospitalist Progress Note Assessment/Plan: 82 yo F w factor V Leiden here w ICH ICH: memory improving unremarkable CTA inr 1.6, given vit K keep sbp< 141 htn: restart losartan at home dose increase amlodipine to 2.5 bid nicardipine off xanax therapy: restart tid low dose xanax FVLeiden: inr reversed nursing home plan unclear for now found down: apparently on the floor a few days AST ok but will check CK for completeness proph: scds dispo: icu, pt/ot to floor Subjective: off nicardipine. case d/w dr braxton Objective: Vital Signs Temp Pulse Resp BP Pulse Ox 36.6 C 69 20 123/49 H 90 L 03/12/18 08:00 03/12/18 13:00 03/12/18 13:00 03/12/18 13:00 03/12/18 13:00 Laboratory Results 03/10/18 04:00 03/12/18 05:48 03/11/18 03/12/18 03/13/18 05:59 05:59 05:59 Intake Total 2556 2629 Output Total 720 550 Balance 1836 2079 PT 14.3 SEC (12.0-15.0) 03/12/18 05:48 INR 1.09 (0.83-1.16) 03/12/18 05:48 - Physical Exam Constitutional: no apparent distress, appears nourished Eyes: PERRL, anicteric sclera Ears, Nose, Mouth, Throat: moist mucous membranes, hearing normal Cardiovascular: regular rate and rhythym, no murmur, rub, or gallop Respiratory: no respiratory distress, no rales or rhonchi Gastrointestinal: normoactive bowel sounds, soft, non-tender abdomen Genitourinary: no bladder fullness, No moy in urethra Skin: warm, normal color Musculoskeletal: full muscle strength Neurologic: AAOx3 ICD10 Worksheet Patient Problems: Problems Problem Status Onset Acute intra-cranial hemorrhage Acute
--- NOTE | 2018-03-12 15:28 | ASMTCMCOM ---
CM Note CM Note Notes: Patient ans daughter have decided that patient should go to [facility] on discharge. Her 2nd choice would be [facility]. Referrals sent to both. [facility] said that they should have a bed available. Date Signed: 03/12/2018 03:27 PM Electronically Signed By:Patricia Stephens LCSW
--- NOTE | 2018-03-12 16:12 | PDINTPN ---
Elect Equip Maint Eng Progress Note Assessment/Plan: Assessment: Status post hemorrhagic stroke. Presumably hypertensive. Query possible fall with head trauma. Neurologic status stable. MRI pending. Hypertension. Off nicardipine drip. On Cozaar, increased amlodipine, and metoprolol.. Anxiety: Takes Xanax on a regular basis, three times daily. Current dose appears to be 0.5 mg, not 0.25 mg? Her tremor may in part be due to benzodiazepine withdrawal? Anticoagulation: Secondary to factor 5 Leiden deficiency. Coumadin on hold. INR 1.09 today Plan: Can transfer to a medical-surgical bed. Continue antihypertensives in Xanax. I will sign off at this point. 20 min of clinic time was spent directly with the patient. Discussed with the patient's daughter, nursing, the ICU multi disciplinary team. Subjective: Doing better, memory improved, tremor less. Off nicardipine drip. Word- finding better Objective: Vital Signs Temp Pulse Resp BP Pulse Ox 36.6 C 69 20 123/49 H 90 L 03/12/18 08:00 03/12/18 13:00 03/12/18 13:00 03/12/18 13:00 03/12/18 13:00 Laboratory Results 03/10/18 04:00 03/12/18 05:48 03/11/18 03/12/18 03/13/18 05:59 05:59 05:59 Intake Total 2556 2629 Output Total 720 550 Balance 1836 2079 PT 14.3 SEC (12.0-15.0) 03/12/18 05:48 INR 1.09 (0.83-1.16) 03/12/18 05:48 Physical Exam - Physical Exam General Appearance: alert, no apparent distress, other (Up in chair) EENT: PERRL/EOMI, other (On room air) Neck: normal inspection Respiratory: lungs clear Cardiac/Chest: regular rate, rhythm Abdomen: normal bowel sounds, non-tender, soft Skin: normal color, warm/dry Extremities: No pedal edema Neuro/Psych: cognition abnormalities (Improving), No no motor/sensory deficits ( Tremor persists but significantly less today.) ICD10 Worksheet Patient Problems: Problems Problem Status Onset Acute intra-cranial hemorrhage Acute
[2018-03-12] MEDS ORDERED: cycloSPORINE 0.05% 30 DROPERETTE/BOX EACHEYE SCH (21:00)
[2018-03-12] MEDS: ATORVASTATIN CALCIUM 10 MG TAB PO SCH (22:04)
[2018-03-12] MEDS: hydrALAZINE 20 MG/ML VIAL IVP PRN (22:31)
[2018-03-13] MEDS: prednisoLONE ACET 1% 5 ML OPHT.BTL RTEYE SCH ×5 (01:24→20:07)
[2018-03-13] MEDS: CARBOXYMETHYLCELLULOSE 0.5% 0.4 ML DROPERETTE EACHEYE SCH ×2 (01:24→20:05)
[2018-03-13] MEDS: cycloSPORINE 0.05% 30 DROPERETTE/BOX EACHEYE SCH ×3 (01:24→20:08)
[2018-03-13 05:40] LABS: INR 1.09 (0.83-1.16); PROTIME(PATIENT) 14.3 SEC (12.0-15.0)
--- NOTE | 2018-03-13 09:03 | NEUROPROG ---
Assessment: BACKGROUND: 03/10 82 year old right-handed woman with a history of HTN, TIAs, Factor V Leiden on warfarin, vision loss in right eye (glaucoma), presented to our facility in transfer from [place] last night due to an intracerebral hemorrhage. Patient live independently and had not been in touch with family for the week. This concerned her daughter who ordered a welfare check on the patient. Patient was found in her apartment confused and EMS transported her to [facility]. CT head wo was done at that facility showing an acute left basal ganglia IPH with mild mass effect and minimal dependent blood products in the occipital horns. Nicardipine infusion was started for BP control and she was transported here for further care. She has been in the ICU overnight and remains on nicardipine infusion. She does recognize some expressive language difficulty and feels a little confused. She denies any focal weakness, sensory loss, visual disturbance, speech dysfunction, TALAVERA, nausea/vomiting, CP, palpitations, SOB. She endorses compliance with her medications. INTERVAL HISTORY: 03/11: Continues to do well. Still with a little word finding difficulty, but improved. No new complaints. No TALAVERA, nausea, vomiting. 03/12: No new complaints. Feels language function improving. It was found she was taking alprazolam TID, so this was restarted to combat withdrawal - tremors improved. No TALAVERA, nausea, vomiting. Still waiting for MRI to be done. 03/13: Taken off nicardipine infusion and transferred to floor yesterday. She is a bit more confused this morning and she notes new right leg weakness. Still without TALAVERA, nausea, vomiting. No other new events/issues. EXAM: VS reviewed in EMR. SBPs 123 - 152 last 24h GEN: WDWN laying in NAD NEURO: GCS 14 (E4, V4, M6) MS: a little drowsy, oriented to self, hospital environment, day, month, not year. Reduced attention. Speech nondysarthric. Expressive language dysfunction present on extended conversation manifest as word finding difficulty - a bit worse. Follows commands. Attends to both sides. Episodic/ recent memory impairment on casual conversation. Mood euthymic. Good fund of knowledge. CN: pupils 3mm round and reactive OS, 4mm round sluggish OD. VFF OS, hand wave only OD (chronic vision impairment). Primary gaze centered. Full ocular motility. Facial sensation preserved. Face symmetric. Hearing grossly intact to finger rub. Palatoglossal movements intact. Shoulder shrug and head turn strong. MOTOR: normal bulk/tone. Hip flexor 4/5 left, 2+/5 right, knee flex/ext 4-/5 on right, otherwise full power throughout. No tremor today. SENSORY: intact/symmetric LT/PP in all extremities. No extinction. COORD: no ataxia FN/HS. Fallon labored. REFLEX: plantars equivocal. No clonus. DTRS absent. GAIT: unable to perform for safety reasons DATA REVIEW: Labs reviewed in EMR INR 1.09 (1.09) (1.21) (1.61) (1.57) TTE - preserved EF at 65%, grade I diastolic dysfunction, no mass/thrombus, no areas of hypokinesis PERSONALLY INTERPRETED RESULTS AND DATA: CT head wo - 35mm x 30mm acute round/elipsoid hemorrhage in the left basal ganglia, minimal mass effect on the adjacent left lateral ventricle, surrounding vasogenic appearing edema, small amount of dependent blood products in the occipital horns. Stable compared to CT from 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 Radiology unable to perform MRI as she has a drain in the right eye which they cannot confirm from what material it is made. CTA head did not show enhancement in the area of the bleed, so unlikely an underlying mass/tumor. GCS 14 ICH score 3 NIHSS 4 (chronic VF defect, RLE weakness) - cont frequent neuro checks and vitals on floor - maintain SBP < 140 - currently off nicardipine infusion - avoid large variability in SBP - primary teams working to adjusting oral anti-HTNs - cont hold OAC - INR at goal < 1.4 today after a single dose of PO vitamin K. Will consider restarting OAC 4+ weeks after discharge (after another CT head wo to assess for ongoing resolution/stability) - monitor coags daily - Unable to due MRI per radiology - CT head wo stat to eval for new right leg weakness - maintain normothermia - avoid hypoglycemia - maintain euvolemia - keep sodium within 140-150 range avoiding hyponatremia - may need to increase this goal and intervene with HTS if any evidence of worsening edema - SCDs - hold DVT chemoprophylaxis given right leg weakness - neurosurgery following - PT/OT/HOOP RIVETING MACHINE OPERATOR HELPER consults - stroke education - further medical management per primary team Patient is critically ill with new ICH - high risk of clinical deterioration with further end organ damage to ELECTRONIC DATA PROCESSING AUDITOR. Now with new right leg weakness and worsening confusion. 40 mins CC time in direct patient care activities on the floor. Objective: Vital Signs Temp Pulse Resp BP Pulse Ox 37.2 C 68 16 130/42 H 94 03/13/18 08:00 03/13/18 08:00 03/13/18 08:00 03/13/18 08:25 03/13/18 08:00 Laboratory Results 03/10/18 04:00 03/13/18 04:38 03/12/18 03/13/18 03/14/18 05:59 05:59 05:59 Intake Total 2629 500 Output Total 550 1200 Balance 2079 -700 PT 14.3 SEC (12.0-15.0) 03/13/18 04:38 INR 1.09 (0.83-1.16) 03/13/18 04:38 Allergies/Adverse Reactions: codeine Allergy (Verified 03/09/18 21:21) meperidine [From Demerol] Allergy (Verified 03/09/18 21:21) morphine Allergy (Verified 03/09/18 21:21)
--- NOTE | 2018-03-13 09:15 | SOAPPROG ---
SOAP Progress Note Assessment/Plan: Assessment: 82 yo F with left basal ganglia hemorrhage Plan: neuro: stable and doing well overall will follow up MRI of brain to evaluate for underlying source of lesion PT/OT/ST please call with neuro changes discussed with Dr Sheth 03/13/18 09:12 Subjective: no headaches, no N/V. Objective: Vital Signs Temp Pulse Resp BP Pulse Ox 37.2 C 68 16 130/42 H 94 03/13/18 08:00 03/13/18 08:00 03/13/18 08:00 03/13/18 08:25 03/13/18 08:00 Laboratory Results 03/10/18 04:00 03/13/18 04:38 03/12/18 03/13/18 03/14/18 05:59 05:59 05:59 Intake Total 2629 500 Output Total 550 1200 Balance 2079 -700 PT 14.3 SEC (12.0-15.0) 03/13/18 04:38 INR 1.09 (0.83-1.16) 03/13/18 04:38 AAOx4,+ FC PERRL, EOMI, subtle left facial droop NERISSA x 4 + light touch ICD10 Worksheet Patient Problems: Problems Problem Status Onset Acute intra-cranial hemorrhage Acute
[2018-03-13] MEDS: METOPROLOL TARTRATE 25 MG TAB PO SCH (10:24)
[2018-03-13] MEDS: LOSARTAN POTASSIUM 50 MG TAB PO SCH (10:25)
[2018-03-13] MEDS: ALPRAZolam 0.25 MG TAB PO SCH (10:26)
[2018-03-13] MEDS: hydrALAZINE 20 MG/ML VIAL IVP PRN ×2 (12:24→18:28)
--- NOTE | 2018-03-13 13:10 | HOSPPROG ---
Hospitalist Progress Note Assessment/Plan: 82 yo F w factor V Leiden here w ICH lethargy: w crackles L base check cxr non con ead ct unchanged ICH: memory improving unremarkable CTA inr 1.6, given vit K keep sbp< 141 htn: restart losartan at home dose increase amlodipine to 2.5 bid nicardipine off xanax therapy: restart tid low dose xanax FVLeiden: inr reversed medical terminologist plan unclear for now found down: apparently on the floor a few days AST ok but will check CK for completeness proph: scds dispo: icu, pt/ot to floor Subjective: case d/w neurosurgery PA. lethargic this AM Objective: Vital Signs Temp Pulse Resp BP Pulse Ox 36.6 C 64 16 144/60 H 97 03/13/18 11:27 03/13/18 11:27 03/13/18 11:27 03/13/18 12:24 03/13/18 11:27 Laboratory Results 03/10/18 04:00 03/13/18 04:38 03/12/18 03/13/18 03/14/18 05:59 05:59 05:59 Intake Total 2629 500 Output Total 550 1200 Balance 2079 -700 PT 14.3 SEC (12.0-15.0) 03/13/18 04:38 INR 1.09 (0.83-1.16) 03/13/18 04:38 - Physical Exam Constitutional: no apparent distress, appears nourished Eyes: PERRL, anicteric sclera Ears, Nose, Mouth, Throat: moist mucous membranes, hearing normal Cardiovascular: regular rate and rhythym, no murmur, rub, or gallop, No tachycardia Respiratory: no respiratory distress, other (crackles L base) Gastrointestinal: normoactive bowel sounds, soft, non-tender abdomen Genitourinary: no bladder fullness, No moy in urethra Skin: warm, normal color Musculoskeletal: full muscle strength, no muscle tenderness Neurologic: AAOx3, sensation intact bilaterally Psychiatric: interacting appropriately ICD10 Worksheet Patient Problems: Problems Problem Status Onset Acute intra-cranial hemorrhage Acute
[2018-03-13] MEDS ORDERED: ALPRAZolam 0.25 MG TAB PO PRN (14:48)
--- NOTE | 2018-03-13 14:53 | ASMTCMCOM ---
CM Note CM Note Notes: Updates sent to [facility] [address]. CM spoke w/ Aleena, the DON and she is able to accept pt. CM to follow. Plan: [facility] [address] Date Signed: 03/13/2018 02:53 PM Electronically Signed By:KEVIN Garrett
[2018-03-13] MEDS ORDERED: GADOBUTROL 10 ML VIAL IVP ONE (17:29)
[2018-03-13] MEDS: ATORVASTATIN CALCIUM 10 MG TAB PO SCH (20:05)
[2018-03-14] MEDS: prednisoLONE ACET 1% 5 ML OPHT.BTL RTEYE SCH ×2 (04:59→12:30)
[2018-03-14] MEDS: hydrALAZINE 20 MG/ML VIAL IVP PRN ×2 (04:59→12:22)
--- NOTE | 2018-03-14 07:24 | SOAPPROG ---
SOAP Progress Note Assessment/Plan: Assessment: 82 yo F with left basal ganglia hemorrhage Plan: neuro: stable and doing well overall MRI brain without source of bleed, likely HTN PT/OT/ST ok to discharge when cleared by Medicine please call with neuro changes follow up with Dr Sheth in 2 weeks with repeat head CT wo contrast, to schedule follow up appointment discussed with Dr Sheth 03/13/18 09:12 03/14/18 07:23 Subjective: no headaches, no N/V. Objective: Vital Signs Temp Pulse Resp BP Pulse Ox 37.1 C 82 16 149/57 H 94 03/14/18 04:00 03/14/18 04:00 03/14/18 04:00 03/14/18 04:59 03/14/18 04:00 Laboratory Results 03/10/18 04:00 03/13/18 04:38 03/13/18 03/14/18 03/15/18 05:59 05:59 05:59 Intake Total 500 570 Output Total 1200 125 Balance -700 445 PT 14.3 SEC (12.0-15.0) 03/13/18 04:38 INR 1.09 (0.83-1.16) 03/13/18 04:38 awake, alert, confused to location PERRL, no facial droop NERISSA x4 + light touch ICD10 Worksheet Patient Problems: Problems Problem Status Onset Acute intra-cranial hemorrhage Acute
[2018-03-14] MEDS: LOSARTAN POTASSIUM 50 MG TAB PO SCH (07:52)
[2018-03-14] MEDS: cycloSPORINE 0.05% 30 DROPERETTE/BOX EACHEYE SCH (08:07)
--- NOTE | 2018-03-14 08:57 | NEUROPROG ---
Assessment: BACKGROUND: 03/10 82 year old right-handed woman with a history of HTN, TIAs, Factor V Leiden on warfarin, vision loss in right eye (glaucoma), presented to our facility in transfer from [place] last night due to an intracerebral hemorrhage. Patient live independently and had not been in touch with family for the week. This concerned her daughter who ordered a welfare check on the patient. Patient was found in her apartment confused and EMS transported her to [facility]. CT head wo was done at that facility showing an acute left basal ganglia IPH with mild mass effect and minimal dependent blood products in the occipital horns. Nicardipine infusion was started for BP control and she was transported here for further care. She has been in the ICU overnight and remains on nicardipine infusion. She does recognize some expressive language difficulty and feels a little confused. She denies any focal weakness, sensory loss, visual disturbance, speech dysfunction, TALAVERA, nausea/vomiting, CP, palpitations, SOB. She endorses compliance with her medications. INTERVAL HISTORY: 03/11: Continues to do well. Still with a little word finding difficulty, but improved. No new complaints. No TALAVERA, nausea, vomiting. 03/12: No new complaints. Feels language function improving. It was found she was taking alprazolam TID, so this was restarted to combat withdrawal - tremors improved. No TALAVERA, nausea, vomiting. Still waiting for MRI to be done. 03/13: Taken off nicardipine infusion and transferred to floor yesterday. She is a bit more confused this morning and she notes new right leg weakness. Still without TALAVERA, nausea, vomiting. No other new events/issues. 03/14: Patient feeling a bit better in terms of noted RLE weakness from yesterday. No new issues/events overnight. No TALAVERA, nausea, vomiting. MRI was able to be performed yesterday. EXAM: VS reviewed in EMR. SBPs 130 - 162 last 24h GEN: WDWN laying in NAD NEURO: GCS 15 (E4, V5, M6) MS: woken from sleep, a little drowsy, oriented to self, hospital environment, day, month, not year. Speech nondysarthric. Language function intact today. Follows commands. Attends to both sides. Episodic/recent memory impairment on casual conversation. Mood euthymic. Good fund of knowledge. CN: pupils 3mm round and reactive OS, 4mm round sluggish OD. VFF OS, hand wave only OD (chronic vision impairment). Primary gaze centered. Full ocular motility. Facial sensation preserved. Face symmetric. Hearing grossly intact to finger rub. Palatoglossal movements intact. Shoulder shrug and head turn strong. MOTOR: normal bulk/tone. Bilateral hip flexor weakness 4/5, otherwise full power throughout. No tremor today. SENSORY: intact/symmetric LT/PP in all extremities. No extinction. COORD: no ataxia FN/HS. Fallon labored. REFLEX: plantars equivocal. No clonus. DTRS absent. GAIT: unable to perform for safety reasons DATA REVIEW: Labs reviewed in EMR INR Not checked today (1.09) (1.09) (1.21) (1.61) (1.57) TTE - preserved EF at 65%, grade I diastolic dysfunction, no mass/thrombus, no areas of hypokinesis PERSONALLY INTERPRETED RESULTS AND DATA: CT head wo 03/10 - 35mm x 30mm acute round/elipsoid hemorrhage in the left basal ganglia, minimal mass effect on the adjacent left lateral ventricle, surrounding vasogenic appearing edema, small amount of dependent blood products in the occipital horns. Stable compared to CT from [facility] (uploaded to PACs) CTA head 03/10 - normal caliber vessels, no vascular abnormalities, no contrast extravasation into area of hemorrhage CT head wo 03/13 - slight decrease in amount of blood products in area of hemorrhage, stable edema with stable mass effect. Less blood products in occipital horns. 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 No evidence of CAA or underlying mass on MRI. CTA head did not show vascular anomaly. GCS 15 ICH score 3 NIHSS 1 (chronic VF defect) - cont frequent neuro checks and vitals on floor - maintain SBP < 140 - currently off nicardipine infusion - avoid large variability in SBP - primary teams working to adjusting oral anti-HTNs - cont hold OAC - INR at goal < 1.4 today after a single dose of PO vitamin K. Will consider restarting OAC 4+ weeks after discharge (after another CT head wo to assess for ongoing resolution/stability) - monitor coags daily while in hospital - maintain normothermia - avoid hypoglycemia - maintain euvolemia - keep sodium within 140-150 range avoiding hyponatremia - SCDs for DVT prophylaxis - would be reasonable to start chemoprophylaxis with SQ heparin given stability of hemorrhage (would advise low intensity BID protocol if started given the hemorrhage) - neurosurgery following - PT/OT/STOCKROOM KEEPER consults - stroke education - further medical management per primary team Patient can be cleared for discharge to SNF/rehab once BP has been optimized with oral medications. Followup with neurosurgery has been arranged with plan to repeat CT head at followup (planned for 2 weeks). Followup with me in neurology clinic in 4 weeks - will consider restarting OAC at that time. Followup with PCP for ongoing BP monitoring and optimization - of the utmost importance given HTN was likely the major culprit in her hemorrhage. Objective: Vital Signs Temp Pulse Resp BP Pulse Ox 37.0 C 81 18 148/54 H 96 03/14/18 07:49 03/14/18 07:49 03/14/18 07:49 03/14/18 07:49 03/14/18 07:49 Laboratory Results 03/10/18 04:00 03/13/18 04:38 03/13/18 03/14/18 03/15/18 05:59 05:59 05:59 Intake Total 500 570 Output Total 1200 125 Balance -700 445 PT 14.3 SEC (12.0-15.0) 03/13/18 04:38 INR 1.09 (0.83-1.16) 03/13/18 04:38 Allergies/Adverse Reactions: codeine Allergy (Verified 03/09/18 21:21) meperidine [From Demerol] Allergy (Verified 03/09/18 21:21) morphine Allergy (Verified 03/09/18 21:21)
--- NOTE | 2018-03-14 11:23 | ASMTCMCOM ---
CM Note CM Note Notes: Chart reviewed fo discharge planning purposes. Patient has been accepted to [facility] in [place] when medically ready for discharge. Therapies continuing, CM to follow. Plan: To [facility] in [place] Date Signed: 03/14/2018 11:22 AM Electronically Signed By:Kelley Urbina RN
[2018-03-14 12:16] VITALS: BP 144/66
--- NOTE | 2018-03-14 13:04 | HOSPPROG ---
Hospitalist Progress Note Assessment/Plan: 82 yo F w factor V Leiden here w ICH lethargy: w crackles L base check cxr non con ead ct unchanged ICH: memory improving unremarkable CTA inr 1.6, given vit K keep sbp< 141 htn: restart losartan at home dose increase amlodipine to 2.5 bid nicardipine off xanax therapy: restart tid low dose xanax FVLeiden: inr reversed custodial plan unclear for now found down: apparently on the floor a few days AST ok but will check CK for completeness proph: scds dispo: to snf today > 30 minutes Subjective: more alert. has bed a [facility] Objective: Vital Signs Temp Pulse Resp BP Pulse Ox 37.2 C 82 18 144/66 H 91 L 03/14/18 12:00 03/14/18 12:00 03/14/18 12:00 03/14/18 12:00 03/14/18 12:00 Laboratory Results 03/10/18 04:00 03/13/18 04:38 03/13/18 03/14/18 03/15/18 05:59 05:59 05:59 Intake Total 500 570 240 Output Total 1200 125 Balance -700 445 240 PT 14.3 SEC (12.0-15.0) 03/13/18 04:38 INR 1.09 (0.83-1.16) 03/13/18 04:38 - Physical Exam Constitutional: no apparent distress, appears nourished Eyes: PERRL, anicteric sclera Ears, Nose, Mouth, Throat: moist mucous membranes, hearing normal Cardiovascular: regular rate and rhythym, no murmur, rub, or gallop, No tachycardia Respiratory: no respiratory distress, no rales or rhonchi Gastrointestinal: normoactive bowel sounds, soft, non-tender abdomen Genitourinary: no bladder fullness, No moy in urethra Skin: warm, normal color Musculoskeletal: full muscle strength Neurologic: AAOx3 ICD10 Worksheet Patient Problems: Problems Problem Status Onset Acute intra-cranial hemorrhage Acute
--- NOTE | 2018-03-14 13:08 | PDIAF ---
- Diagnosis Diagnosis: intracranial hemorrhage Code Status: Full Code - Medication Management Discharge Medications: Medications to Continue on Transfer Simvastatin 20 mg PO HS 03/09/18 [Last Taken Unknown] ALPRAZolam [Alprazolam] 0.5 mg PO TID PRN 03/11/18 [Last Taken Unknown] Acetaminophen [Tylenol ES 500 mg (*)] 1,000 mg PO Q6 PRN 03/11/18 [Last Taken Unknown] Carboxymethylcellulose 0.5% [Refresh Plus Drops 0.5%] 1 drops EACHEYE HS [Last Taken Unknown] Losartan Potassium [Cozaar 50 mg (*)] 100 mg PO DAILY 03/11/18 [Last Taken Unknown] Prednisolone Acetate 1 drp RTEYE QID 03/11/18 [Last Taken Unknown] cycloSPORINE 0.05% [Restasis Opht Drops(*)] 1 drop EACHEYE BID 03/11/18 [Last Taken Unknown] ALPRAZolam [Xanax 0.25 MG (*)] 0.25 mg PO TID PRN tab 03/14/18 [Last Taken Unknown] amLODIPine BESYLATE [Norvasc 2.5 mg (*)] 5 mg PO BID tab 03/14/18 [Last Taken Unknown] Additional Medication Instructions: takes warfarin for factor V leiden. Home dose is 2.5 mg. recommend restarting warfarin at this dose 04/07, 1 month after event. Discharge Medications: Refer to the Discharge Home Medication list for PRN reason. - Orders Services needed: Registered Nurse, Certified Feeder Operator Automatic, Physical Therapy, Occupational Therapy, Speech Language Pathologist Diet Texture: Regular Texture Diet, Thin Liquids, Meds Whole w/Liquids Additional Instructions: PCP to monitor blood pressure - Follow Up Care Current Providers and Referrals: Trung Sheth MD [Medical Doctor] - (2 weeks with repeat heat CT without contrast. call office to arrange) NONE *PRIMARY CARE P,. [Unknown] - As per Instructions Nahid Bolton DO [Doctor of Osteopathy] - (follow up in 4 weeks)
--- NOTE | 2018-03-14 13:14 | ASMTLACE ---
CHRISTINA Length of stay for Answers: 4-6 days current admission Acuity / Level of Answers: Yes Care: Did the patient have an inpatient admission? Comorbidities - select Answers: Cerebrovascular disease all that apply (CVA, TIA, aneurysms, vasc ular dementia) History of falls # of Emergency department Answers: 1-2 visits in the last 6 months Social determinants Answers: Mental health diagnosis (anxiety, depression, pers onality disorders, etc.) Score: 15 Date Signed: 03/14/2018 01:13 PM Electronically Signed By:Kelley Urbnia RN
--- NOTE | 2018-03-14 13:28 | GDS ---
[f rep st] DISCHARGE SUMMARY DISCHARGE DIAGNOSES: 1. Factor V Leiden, on warfarin. 2. 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 3. Chronic benzodiazepine use. 4. Hypertension. 5. Mild hospital-acquired encephalopathy, now improving. 6. Glaucoma. Please see admission history and physical by Dr. Antoni Escobar. Patient was admitted on the e vening of the after a well care check, found her on the floor. She was diagnosed with an intrap arenchymal hemorrhage as described. CTA showed no vascular abnormalities. An MRI showed no underlyi ng lesion. The patient had mild encephalopathy and some speech difficulties, but was otherwise doing well from a vascular standpoint. She was followed by Neurosurgery, and Neurology recommended no int ervention. On the , the patient was a bit confused. She had some crackles in the left base, the chest x-ray demonstrated no atelectasis or infiltrate. Patient was afebrile. She is discharged to [facility]. Given her intracranial hemorrhage and Factor V Leiden, with a competing interest that these represent , we will hold warfarin for 1 month; it can be resumed on 04/07. /[id number]/MODL
--- NOTE | 2018-03-14 15:24 | ASMTCMCOM ---
CM Note CM Note Notes: Physician has medically cleared patient to go to SNF rehab. Call and left message for intake at [facility]. Final orders via allscripts. Left call back number for questions and concerns. Wlll give RN number to call report. Daughter to transport ok with hospital medicine, CM available should other needs arise. Plan: To [facility] via private vehicle. Date Signed: 03/14/2018 03:23 PM Electronically Signed By:ANTONIETTA Guzmán
--- NOTE | 2018-03-14 15:37 | ASDISCHSUM ---
Discharge Information Plan Status:SNF Medically Cleared to Leave:03/14/2018 Discharge Date:03/14/2018 02:36 PM D/C Disposition:Half-Way Facility ADT D/C Disposition:Other Rehab, Not Lili Projected Discharge Date:03/14/2018 11:00 AM Transportation at D/C:Family Discharge Delay Reason: Follow-Up Date:03/14/2018 11:00 AM Discharge Slot: Final Diagnosis:Basal ganglia hemorrhage, HTN Placement Information Referral Type:*Skilled Nursing/SNF Referral ID:[facility]-[id number] Provider Name:[facility] Address 1:[address] Address 2: City:[place] Selection Factors: State:[place] Patient Contact Information Contact Name:CRUZ Relationship:Daughter Address: City: [facility] Phone: [facility]/Zip Code:[place] Email: Financial Information Financial Class:Medicare Primary Plan Desc:MEDICARE INPATIENT Primary Plan Number:[id number] Secondary Plan Desc:[employer]/MDR SUPPLEMENT Secondary Plan Number:[id number] Assessment Information LACE LACE Length of stay for Answers: 4-6 days current admission Acuity / Level of Answers: Yes Care: Did the patient have an inpatient admission? Comorbidities - select Answers: Cerebrovascular disease all that apply (CVA, TIA, aneurysms, vasc ular dementia) History of falls # of Emergency department Answers: 1-2 visits in the last 6 months Social determinants Answers: Mental health diagnosis (anxiety, depression, pers onality disorders, etc.) Score: 15 Date Signed: 03/14/2018 01:13 PM Electronically Signed By:Kelley Urbina RN [facility] CM Progress Note CM Note CM Note Notes: 82yr old female found down at home after a welfare check. Admitted for Basal ganglion hemorrhage, HTN. She has a Hx of HTN, TIA's Factor V Leiden, Glaucoma. Patient lives alone in [place]. Involved son and daughter. CT Scan stable. Therapies to eval for discharge needs. CM to follow. Date Signed: 03/10/2018 12:38 PM Electronically Signed By:Patricia Stephens LCSW [facility] Progress Note CM Note CM Note Notes: Patient ans daughter have decided that patient should go to [facility] on discharge. Her 2nd choice would be [facility]. Referrals sent to both. [facility] said that they should have a bed available. Date Signed: 03/12/2018 03:27 PM Electronically Signed By:Patricia Stephens LCSW [facility] Progress Note CM Note CM Note Notes: Updates sent to [facility]. CM spoke w/ Aleena, the [facility] and she is able to accept pt. CM to follow. Plan: [facility] Date Signed: 03/13/2018 02:53 PM Electronically Signed By:KEVIN Garrett [facility] CM Progress Note CM Note CM Note Notes: Chart reviewed fo discharge planning purposes. Patient has been accepted to [facility] when medically ready for discharge. Therapies continuing, CM to follow. Plan: To [facility] Date Signed: 03/14/2018 11:22 AM Electronically Signed By:Kelley Urbina RN [facility] CM Progress Note CM Note CM Note Notes: Physician has medically cleared patient to go to SNF rehab. Call and left message for intake at [facility]. Final orders via [employer]. Left call back number for questions and concerns. Salbador give RN number to call report. Daughter to transport ok with hospital medicine, CM available should other needs arise. Plan: To [facility] via private vehicle. Date Signed: 03/14/2018 03:23 PM Electronically Signed By:ANTONIETTA Guzmán Intervention Information
== END 2018-03-14 14:36 | DRG 64 ==
LOC: OBSVTOIN 21:53 → F2N 23:12 → F3N 03-12 16:48
PROVIDERS: ADMIT Hospitalist; ATTEND Student in an Organized Health Care Education/Training Program
DX: I62.9 Nontraumatic intracranial hemorrhage, unspecified (principal); G93.40 Encephalopathy, unspecified; G93.6 Cerebral edema; D68.2 Hereditary deficiency of other clotting factors; G25.1 Drug-induced tremor; T42.4X5A Adverse effect of benzodiazepines, initial encounter; H40.9 Unspecified glaucoma; R40.2410 Glasgow coma scale score 13-15, unspecified time; R29.701 NIHSS score 1; I10 Essential (primary) hypertension; E78.00 Pure hypercholesterolemia, unspecified; Z96.653 Presence of artificial knee joint, bilateral
CPT/HCPCS: 92507-GN; 92523-GN; 92610-GN; 97116-GP; 97162-GP; 97166-GO; 97530-GO; 97530-GP; 97535-GO; A9585; G8978-GP-CK; G8979-GP-CI; G8987-GO-CK; G8988-GO-CI; G8996-GN-CH; G8997-GN-CH; G8998-GN-CH; G9162-GN-CJ; G9163-GN-CI; J0360; Q9967